=== PATIENT | male | born 1985 | race African-American/Black ===

== ENCOUNTER 2018-10-08 08:44 | Emergency (ER) | payer BC ==
--- NOTE | 2018-10-08 09:49 | EDM.PDOC ---
ED HPI GENERAL MEDICAL PROBLEM - General Chief Complaint: Neck Problem Stated Complaint: STIFF NECK Time Seen by Provider: 10/08/18 08:58 Source of Information: Reports: Patient History Limitations: Reports: No Limitations - History of Present Illness INITIAL COMMENTS - FREE TEXT/NARRATIVE: History of present illness: []Patient had 4 days of neck spasms and went to work 3 days ago that worsen the symptoms over the weekend. He now cannot move his neck without severe pain. He denies any trauma any numbness or tingling or any other injury or pain. Review of systems: As per history of present illness and below otherwise all systems reviewed and negative. Past medical history: As per history of present illness and as reviewed below otherwise noncontributory. Surgical history: As per history of present illness and as reviewed below otherwise noncontributory. Social history: No reported history of drug or alcohol abuse. Family history: As per history of present illness and as reviewed below otherwise noncontributory. Physical exam: General: Well developed, well nourished in NAD HEENT: Atraumatic, normocephalic, pupils reactive, negative for conjunctival pallor or scleral icterus, mucous membranes moist, throat clear, neck rigid , tender over right PACS, no vertebral tenderness to palpation, trachea midline. Lungs: Clear to auscultation, breath sounds equal bilaterally, chest nontender. Heart: S1S2, regular, negative for clicks, rubs, or JVD. Abdomen: NABS, Soft, nondistended, nontender. Negative for masses or hepatosplenomegaly. Negative for costovertebral tenderness. Pelvis: Stable nontender. Genitourinary: Deferred. Rectal: Deferred. Extremities: Atraumatic, negative for cords or calf pain. Neurovascular unremarkable. Neuro: Awake, alert, oriented. Cranial nerves II through XII unremarkable. Cerebellum unremarkable. Motor and sensory unremarkable throughout. Exam nonfocal. Skin:warm and dry Diagnostics: None Therapeutics: Norflex IM ED Course: Stable Impression: Neck muscle spasm Prescriptions: Norflex Plan: Take meds as directed, follow up with your primary care physician, return to ER if symptoms worsen or change. Definitive disposition and diagnosis as appropriate pending reevaluation and review of above. right middle neck Pain Score (Numeric/FACES): 10 - Related Data Allergies Allergy/AdvReac Type Severity Reaction Status Date / Time No Known Allergies Allergy Verified 10/08/18 09:01 Home Meds: Home Meds Orphenadrine [Norflex] 100 mg PO BID PRN #16 tab 10/08/18 [Rx] Past Medical History HEENT History: Reports: None Cardiovascular History: Reports: None Respiratory History: Reports: None Gastrointestinal History: Reports: None Genitourinary History: Reports: None Musculoskeletal History: Reports: None Neurological History: Reports: None Psychiatric History: Reports: None Endocrine/Metabolic History: Reports: None Hematologic History: Reports: None Immunologic History: Reports: None Oncologic (Cancer) History: Reports: None Dermatologic History: Reports: None - Infectious Disease History Infectious Disease History: Reports: Chicken Pox - Past Surgical History Head Surgeries/Procedures: Reports: None HEENT Surgical History: Reports: None Cardiovascular Surgical History: Reports: None Respiratory Surgical History: Reports: None GI Surgical History: Reports: None Male Surgical History: Reports: None Endocrine Surgical History: Reports: None Neurological Surgical History: Reports: None Musculoskeletal Surgical History: Reports: Arthroscopic Knee Oncologic Surgical History: Reports: None Dermatological Surgical History: Reports: None Social & Family History - Family History Family Medical History: Noncontributory - Tobacco Use Smoking Status *Q: Never Smoker Second Hand Smoke Exposure: No - Caffeine Use Caffeine Use: Reports: Coffee, Tea - Recreational Drug Use Recreational Drug Use: No ED ROS GENERAL - Review of Systems Review Of Systems: ROS reveals no pertinent complaints other than HPI. ED EXAM, UPPER BACK/NECK PAIN - Physical Exam Exam: See Below (See history of present illness) Course - Vital Signs Last Recorded V/S: Last Vital Signs Temp 97.2 F 10/08/18 08:59 Pulse 66 10/08/18 08:59 Resp 16 10/08/18 08:59 BP 168/86 H 10/08/18 08:59 Pulse Ox 99 10/08/18 08:59 - Orders/Labs/Meds Orders: Active Orders 24 hr Category Date Time Status Orphenadrine [Norflex] Med 10/08/18 09:15 Active 60 mg IM Q12H Medication Orders Orphenadrine Citrate (Norflex) 60 mg IM Q12H LEISA Last Admin: 10/08/18 09:19 Dose: 60 mg Meds: Medications Generic Name Dose Route Start Last Admin Trade Name Freq PRN Reason Stop Dose Admin Orphenadrine Citrate 60 mg 10/08/18 09:15 10/08/18 09:19 Norflex IM 60 mg Q12H LEISA Administration Departure - Departure Time of Disposition: 09:49 Disposition: Home, Self-Care 01 Condition: Good Clinical Impression: Neck muscle spasm - Discharge Information *PRESCRIPTION DRUG MONITORING PROGRAM REVIEWED*: No *COPY OF PRESCRIPTION DRUG MONITORING REPORT IN PATIENT LADY: No Prescriptions: Orphenadrine [Norflex] 100 mg PO BID PRN #16 tab PRN Reason: Pain Instructions: Muscle Cramps and Spasms, [id number] Referrals: PCP,None [Primary Care Provider] - Forms: ED Department Discharge Additional Instructions: The following information is given to patients seen in the emergency department who are being discharged to home. This information is to outline your options for follow-up care. We provide all patients seen in our emergency department with a follow-up referral. The need for follow-up, as well as the timing and circumstances, are variable depending upon the specifics of your emergency department visit. If you don't have a primary care physician on staff, we will provide you with a referral. We always advise you to contact your personal physician following an emergency department visit to inform them of the circumstance of the visit and for follow-up with them and/or the need for any referrals to a consulting specialist. The emergency department will also refer you to a specialist when appropriate. This referral assures that you have the opportunity for follow-up care with a specialist. All of these measure are taken in an effort to provide you with optimal care, which includes your follow-up. Under all circumstances we always encourage you to contact your private physician who remains a resource for coordinating your care. When calling for follow-up care, please make the office aware that this follow-up is from your recent emergency room visit. If for any reason you are refused follow-up, please contact the [facility] Emergency Department at and asked to speak to the emergency department charge nurse. Take meds as directed, follow up with your primary care physician, return to ER if symptoms worsen or change. [facility] [address] [place] [id number] - My Orders Last 24 Hours: My Active Orders 10/08/18 09:15 Orphenadrine [Norflex] 60 mg IM Q12H - Assessment/Plan Last 24 Hours: My Active Orders 10/08/18 09:15 Orphenadrine [Norflex] 60 mg IM Q12H
== END 2018-10-08 10:00 | disposition home or self-care (01) ==
LOC: MW.ED 08:44
DX: M62.838 Other muscle spasm (principal); Z79.899 Other long term (current) drug therapy
CPT/HCPCS: 96372; 99283; J2360

== ENCOUNTER 2018-10-09 20:53 | Emergency (ER) | payer BC ==
[2018-10-09] MEDS ORDERED: Ketorolac 60 MG/2 ML SDV IM ONE (21:36)
--- NOTE | 2018-10-09 21:45 | EDM.PDOC ---
<Geovanna Ambriz - Last Filed: 10/09/18 22:18> ED HPI GENERAL MEDICAL PROBLEM - General Chief Complaint: Neck Problem Stated Complaint: STIFF NECK Time Seen by Provider: 10/09/18 20:54 - Related Data Allergies Allergy/AdvReac Type Severity Reaction Status Date / Time No Known Allergies Allergy Verified 10/09/18 21:15 Home Meds: Home Meds Orphenadrine [Norflex] 100 mg PO BID PRN #16 tab 10/08/18 [Rx] ED ROS GENERAL - Review of Systems Review Of Systems: ROS reveals no pertinent complaints other than HPI. ED EXAM, UPPER BACK/NECK PAIN - Physical Exam Exam: See Below Course - Vital Signs Last Recorded V/S: Last Vital Signs Temp 36.2 C 10/09/18 22:35 Pulse 61 10/09/18 22:35 Resp 18 10/09/18 22:35 BP 137/89 10/09/18 22:35 Pulse Ox 98 10/09/18 22:35 - Orders/Labs/Meds Orders: Active Orders 24 hr Category Date Time Status Consult to Physical Therapy [PT Evaluation and Cons 10/09/18 21:41 Active Treatment] [CONS] Stat Meds: Medications Discontinued Medications Generic Name Dose Route Start Last Admin Trade Name Freq PRN Reason Stop Dose Admin Ketorolac Tromethamine 60 mg 10/09/18 21:36 10/09/18 21:42 Toradol IM 10/09/18 21:37 60 mg ONETIME ONE Administration Orphenadrine Citrate 60 mg 10/09/18 21:36 10/09/18 21:45 Norflex IM 10/09/18 21:37 60 mg NOW STA Administration Departure - Departure Time of Disposition: 22:18 Disposition: Home, Self-Care 01 Condition: Good Clinical Impression: Trapezius muscle spasm - Discharge Information Instructions: Muscle Cramps and Spasms, [id number] Referrals: PCP,None [Primary Care Provider] - Forms: ED Department Discharge Additional Instructions: The following information is given to patients seen in the emergency department who are being discharged to home. This information is to outline your options for follow-up care. We provide all patients seen in our emergency department with a follow-up referral. The need for follow-up, as well as the timing and circumstances, are variable depending upon the specifics of your emergency department visit. If you don't have a primary care physician on staff, we will provide you with a referral. We always advise you to contact your personal physician following an emergency department visit to inform them of the circumstance of the visit and for follow-up with them and/or the need for any referrals to a consulting specialist. The emergency department will also refer you to a specialist when appropriate. This referral assures that you have the opportunity for follow-up care with a specialist. All of these measure are taken in an effort to provide you with optimal care, which includes your follow-up. Under all circumstances we always encourage you to contact your private physician who remains a resource for coordinating your care. When calling for follow-up care, please make the office aware that this follow-up is from your recent emergency room visit. If for any reason you are refused follow-up, please contact the [facility] Emergency Department at and asked to speak to the emergency department charge nurse. [facility] [address] [place] [id number] [facility] [address] [place] [id number] 1. Continue to take Tylenol as directed for pain and discomfort. Take medication as prescribed. Do not take diclofenac with ibuprofen. 2. Apply heat pad 15 mins on / 15 mins off for the next 24-48 hours. You can consider dry needling, ([facility]) does dry needling for muscle spasms. Referral for our physical therapy department has also been placed and you may try to connect with them for dry needling for this spasm as well 3. Follow up with the primary care provider as discussed. Return to the ED as needed and as discussed. <Chelsea Weller - Last Filed: 10/10/18 22:15> ED HPI GENERAL MEDICAL PROBLEM - General Source of Information: Reports: Patient History Limitations: Reports: No Limitations - History of Present Illness INITIAL COMMENTS - FREE TEXT/NARRATIVE: HISTORY AND PHYSICAL: History of present illness: Patient is a 33-year-old male presents to the ED today with concern of a neck spasm that has been ongoing since yesterday. Patient was seen in the ED yesterday and was given in the muscle relaxer and was told to take ibuprofen and Tylenol. Patient states that he has been doing this but has not taken a dose of any of these medications since 10 this morning. Patient states when he turns his neck a certain way the right side of his neck "spasm" and he feels as if he cannot move his neck. Patient denies any injury or any other symptoms. Patient states he has not tried applying heat to his neck or any other means of treatment. Patient denies fever, chills, chest pain, shortness of breath, or cough. Denies headache, change in vision, syncope, or near syncope. Denies nausea, vomiting, abdominal pain, diarrhea, constipation, or dysuria. Has not noted any blood in urine or stool. Patient has been eating and drinking appropriately. Review of systems: As per history of present illness and below otherwise all systems reviewed and negative. Past medical history: As per history of present illness and as reviewed below otherwise noncontributory. Surgical history: As per history of present illness and as reviewed below otherwise noncontributory. Social history: See social history for further information Family history: As per history of present illness and as reviewed below otherwise noncontributory. Physical exam: General: Patient is alert, oriented, and in no acute distress. Patient sitting comfortably on exam table. HEENT: Atraumatic, normocephalic, pupils equal and reactive bilaterally, negative for conjunctival pallor or scleral icterus, mucous membranes moist, TMs normal bilaterally, throat clear, neck supple, nontender, trachea midline. No drooling or trismus noted. No meningeal signs. No hot potato voice noted. Lungs: Clear to auscultation, breath sounds equal bilaterally, chest nontender. Heart: S1S2, regular rate and rhythm without overt murmur Abdomen: Soft, nondistended, nontender. Negative for masses or hepatosplenomegaly. Negative for costovertebral tenderness. Pelvis: Stable nontender. Genitourinary: Deferred. Rectal: Deferred. Skin: Intact, warm, dry. No lesions or rashes noted. Extremities/musculoskeletal: Atraumatic, negative for cords or calf pain. Neurovascular unremarkable. Negative pain to palpation of the complete spine and spinous process. With range of motion of the cervical spine, patient expresses spasm along the trapezius muscle origin/insertion along the right side of the neck and along the muscle line to the right shoulder / mid scapula with pain on palpation of muscle body as well. No obvious deformities, step-offs , or crepitus of the complete spine. Neuro: Awake, alert, oriented. Cranial nerves II through XII unremarkable. Cerebellum unremarkable. Motor and sensory unremarkable throughout. Exam nonfocal. Notes: Discussed the importance for follow-up with primary care provider. Voices understanding and is agreeable to plan of care. Denies any further questions or concerns at this time. Diagnostics: Cervical XR Therapeutics: Norflex, Toradol Prescription: Diclofenac Impression: Trapezius neck spasm Plan: 1. Continue to take Tylenol as directed for pain and discomfort. Take medication as prescribed. Do not take diclofenac with ibuprofen. 2. Apply heat pad 15 mins on / 15 mins off for the next 24-48 hours. You can consider dry needling, ([facility]) does dry needling for muscle spasms. 3. Follow up with the primary care provider as discussed. Return to the ED as needed and as discussed. Definitive disposition and diagnosis as appropriate pending reevaluation and review of above. Neck Pain Score (Numeric/FACES): 10 Past Medical History HEENT History: Reports: None Cardiovascular History: Reports: Hypertension Respiratory History: Reports: None Gastrointestinal History: Reports: None Genitourinary History: Reports: None Musculoskeletal History: Reports: None Neurological History: Reports: None Psychiatric History: Reports: None Endocrine/Metabolic History: Reports: None Hematologic History: Reports: None Immunologic History: Reports: None Oncologic (Cancer) History: Reports: None Dermatologic History: Reports: None - Infectious Disease History Infectious Disease History: Reports: Chicken Pox - Past Surgical History Head Surgeries/Procedures: Reports: None HEENT Surgical History: Reports: None Cardiovascular Surgical History: Reports: None Respiratory Surgical History: Reports: None GI Surgical History: Reports: None Male Surgical History: Reports: None Endocrine Surgical History: Reports: None Neurological Surgical History: Reports: None Musculoskeletal Surgical History: Reports: Arthroscopic Knee Oncologic Surgical History: Reports: None Dermatological Surgical History: Reports: None Social & Family History - Family History Family Medical History: Noncontributory - Tobacco Use Smoking Status *Q: Never Smoker - Caffeine Use Caffeine Use: Reports: Coffee, Tea - Recreational Drug Use Recreational Drug Use: No ED ROS GENERAL - Review of Systems Review Of Systems: ROS reveals no pertinent complaints other than HPI. ED EXAM, UPPER BACK/NECK PAIN - Physical Exam Exam: See Below (see dictation)
--- NOTE | 2018-10-09 22:14 | CR ---
INDICATION: Pain after sleeping. No history of injury. COMPARISON: None available. FINDINGS: The cervical spine was examined with AP, lateral and open mouth views for a total of three views. The cervical vertebral bodies and disc spaces are normal in height. The vertebral bodies are in anatomic alignment with no sign of fracture or subluxation. The prevertebral soft tissues are normal in appearance with no sign of swelling. The airway structures are normal in appearance. IMPRESSION: Normal cervical spine three views. Dictated by Wellington Elliott MD @ Oct 09 2018 10:12PM Signed by Dr. Wellington Elliott @ Oct 09 2018 10:13PM
== END 2018-10-09 22:35 | disposition home or self-care (01) ==
LOC: MW.ED 20:53
DX: M62.838 Other muscle spasm (principal); I10 Essential (primary) hypertension
CPT/HCPCS: 72040; 96372; 99283; J1885; J2360

== ENCOUNTER 2020-06-26 01:21 | Emergency (ER) | payer BC ==
[2020-06-26] MEDS ORDERED: Sodium Chloride 0.9% 2.5 ML Syringe FLUSH PRN (01:35)
[2020-06-26] MEDS ORDERED: Aspirin 81 MG Tab.Chew PO ONE (01:35)
[2020-06-26] MEDS ORDERED: Sodium Chloride 0.9% 10 ML Syringe FLUSH PRN (01:35)
--- NOTE | 2020-06-26 01:39 | EDM.PDOC ---
ED HPI GENERAL MEDICAL PROBLEM - General Stated Complaint: CHEST PAIN Time Seen by Provider: 06/26/20 01:23 - History of Present Illness INITIAL COMMENTS - FREE TEXT/NARRATIVE: HISTORY AND PHYSICAL: History of present illness: This is a 34-year-old gentleman with a recent diagnosis of hypertension who was recently started on lisinopril approximately 2 days ago by his primary care physician who presents to the ER today complaining of midsternal chest pain that started ever since he started taking his lisinopril. Patient reported the pain in the left side of his chest and midsternal region. Patient reports that the pain increases with exertion. Patient reports no associated shortness of breath, diaphoresis, nausea, pain rating to his arms jaw or back. Patient reports no family history of prior CAD or DC. Patient denies any history of diabetes or high cholesterol. Patient reports that the pain increased tonight after eating has been having pain and discomfort in that region since. Patient reports that when he walks around the pain worsens and is improved with sitting down. Patient denies any recent fevers, shakes, chills, nausea, vomiting, diarrhea, dysuria, frequency, urgency, shortness of breath, abdominal pain, calf tenderness, hemoptysis. Review of systems: As per history of present illness and below otherwise all systems reviewed and negative. Past medical history: As per history of present illness and as reviewed below otherwise noncontributory. Surgical history: As per history of present illness and as reviewed below otherwise noncontributory. Social history: No reported history of drug or alcohol abuse. Family history: As per history of present illness and as reviewed below otherwise noncontributory. Physical exam: This patient was seen and evaluated during the 2019 SARS-CoV-2 novel coronavirus pandemic period. Community viral transmission is ongoing at time of this encounter and the emergency department is operating under pandemic response procedures. Constitutional: Patient is oriented to person, place, and time. Appears well- developed and well-nourished. No distress. HEENT: Moist mucous membranes Head: Normocephalic and atraumatic Eyes: Right eye exhibits no discharge. Left eye exhibits no discharge. No scleral icterus Neck: Normal range of motion. No tracheal deviation present. Cardiovascular: Normal rate and regular rhythm. Pulmonary: Effort normal, no respiratory distress. Abdominal: No distention Musculoskeletal: Normal range of motion Neurologic: Alert and oriented to person, place and time. Skin: [place], warm and dry. Psychiatric: Normal mood and affect. Behavior is normal. Judgment and thought content normal. Nursing note and vital signs have been reviewed Diagnostics: EKG: As interpreted by ER physician: Vicky: Nonspecific ST-T wave abnormalities Normal axis No evidence of ST elevation DC Normal sinus rhythm heart rate of 65 Chest Xray: Normal cardiac silhouette No infiltrates or effusions identified. No PTX No evidence of acute bony fracture. As interpreted by ER MD: Vicky EKG #2 EKG: As interpreted by ER physician: Vicky: Nonspecific ST-T wave abnormalities Normal axis No evidence of ST elevation DC Normal sinus rhythm heart rate of 54 no significant changes from prior EKG from earlier today. Therapeutics: Aspirin Assessment and plan: Is a 34-year-old gentleman with a history of recently diagnosed hypertension who presents ER today with exertional type chest pain that started earlier this evening. Patient reports that he started having pain in his chest ever since he started taking his lisinopril. Patient reports that this evening after eating dinner he started having discomfort in his chest that has been constant since. Patient denies any other significant cardiac risk factors. Patient will have labs including a CBC, CMP, D-dimer, troponin drawn and we will evaluate results. 4:06 AM: Patient has been seen and evaluated by me and reevaluated by me multiple times during his ER visit I have had long conversations with him and his regarding his symptoms and his blood pressure. Patient reports that he only has pain when he swallows his saliva or pills. Patient reports that when he is not swallowing he has no pain or discomfort. In the ED, he was given an aspirin and he reports that the pain in his chest occurred after swallowing the aspirin and then resolved after several seconds. It is unclear whether or not the symptoms that the patient is experiencing is related to esophageal spasms or if it is a side effect from the blood pressure medication that he has been started on. Patient was given a GI cocktail and reports after the GI cocktail his symptoms are resolved and he does not get the discomfort anymore when he swallows. Patient troponin in the ER is negative and his repeat was also negative at 2 hours. Patient's EKGs have been unremarkable. A repeat EKG was done which showed no dynamic changes. At this time, I feel that this patient is extremely low risk for cardiac etiology of his discomfort. I have had a long discussion with the patient and his and at this time we are in agreement that the patient is safe to be discharged home with close follow-up with his doctor on Monday or Monday for reevaluation. Patient was instructed to return to the ER if he develops any new or concerning symptoms or if he has recurrence of his discomfort. Reassessment at the time of disposition demonstrates that the patient is in no acute distress. The patient has remained stable throughout the entire ED visit and is without objective evidence for acute process requiring urgent intervention or hospitalization. The patient is stable for discharge, counseling is provided as documented above, discussed symptomatic treatment and specific conditions for return. I have spoken with the patient/caregiver and discussed todays findings, in addition to providing specific details for the plan of care. Questions are answered and there is agreement with the plan. Definitive disposition and diagnosis as appropriate pending reevaluation and review of above. chest Pain Score (Numeric/FACES): 10 - Related Data Allergies Allergy/AdvReac Type Severity Reaction Status Date / Time No Known Allergies Allergy Verified 06/26/20 01:37 Home Meds: Home Meds lisinopriL [Lisinopril] 10 mg PO DAILY 06/26/20 [History] Past Medical History HEENT History: Reports: None Cardiovascular History: Reports: Hypertension Respiratory History: Reports: None Gastrointestinal History: Reports: None Genitourinary History: Reports: None Musculoskeletal History: Reports: None Neurological History: Reports: None Psychiatric History: Reports: None Endocrine/Metabolic History: Reports: None Hematologic History: Reports: None Immunologic History: Reports: None Oncologic (Cancer) History: Reports: None Dermatologic History: Reports: None - Infectious Disease History Infectious Disease History: Reports: Chicken Pox - Past Surgical History Head Surgeries/Procedures: Reports: None HEENT Surgical History: Reports: None Cardiovascular Surgical History: Reports: None Respiratory Surgical History: Reports: None GI Surgical History: Reports: None Male Surgical History: Reports: None Endocrine Surgical History: Reports: None Neurological Surgical History: Reports: None Musculoskeletal Surgical History: Reports: Arthroscopic Knee Oncologic Surgical History: Reports: None Dermatological Surgical History: Reports: None Social & Family History - Family History Family Medical History: No Pertinent Family History - Caffeine Use Caffeine Use: Reports: Coffee, Tea ED ROS GENERAL - Review of Systems Review Of Systems: See Below ED EXAM, GENERAL - Physical Exam Exam: See Below Course - Vital Signs Last Recorded V/S: Last Vital Signs Temp 98 F 06/26/20 01:30 Pulse 57 L 06/26/20 03:42 Resp 19 06/26/20 03:42 BP 115/73 06/26/20 03:42 Pulse Ox 98 06/26/20 03:42 - Orders/Labs/Meds Orders: Active Orders 24 hr Category Date Time Status EKG Documentation Completion [RC] AM Care 06/26/20 01:35 Active Chest 1V Frontal [CR] Stat Exams 06/26/20 01:35 Taken Sodium Chloride 0.9% [Saline Flush] Med 06/26/20 01:35 Active 10 ml FLUSH ASDIRECTED PRN Sodium Chloride 0.9% [Saline Flush] Med 06/26/20 01:35 Active 2.5 ml FLUSH ASDIRECTED PRN Saline Lock Insert [OM.PC] Stat Oth 06/26/20 01:35 Ordered Medication Orders Sodium Chloride (Saline Flush) 10 ml FLUSH ASDIRECTED PRN PRN Reason: Keep Vein Open Last Admin: 06/26/20 01:43 Dose: 10 ml Documented by: MARIA FERNANDA Sodium Chloride (Saline Flush) 2.5 ml FLUSH ASDIRECTED PRN PRN Reason: Keep Vein Open Last Admin: 06/26/20 01:42 Dose: 2.5 ml Documented by: MARIA FERNANDA Labs: Laboratory Tests 06/26/20 06/26/20 06/26/20 Range/Units 01:26 01:26 01:26 WBC 4.74 (4.0-11.0) K/uL RBC 5.08 (4.50-5.90) M/uL Hgb 15.0 (13.0-17.0) g/dL Hct 43.1 (38.0-50.0) % MCV 84.8 (80.0-98.0) fL MCH 29.5 (27.0-32.0) pg MCHC 34.8 (31.0-37.0) g/dL RDW Std Deviation 39.4 (28.0-62.0) fl RDW Coeff of Rory 13 (11.0-15.0) % Plt Count 211 (150-400) K/uL MPV 9.90 (7.40-12.00) fL Neut % (Auto) 50.2 (48.0-80.0) % Lymph % (Auto) 38.0 (16.0-40.0) % [place] % (Auto) 9.5 (0.0-15.0) % Eos % (Auto) 1.7 (0.0-7.0) % Baso % (Auto) 0.6 (0.0-1.5) % Neut # (Auto) 2.4 (1.4-5.7) K/uL Lymph # (Auto) 1.8 (0.6-2.4) K/uL [place] # (Auto) 0.5 (0.0-0.8) K/uL Eos # (Auto) 0.1 (0.0-0.7) K/uL Baso # (Auto) 0.0 (0.0-0.1) K/uL D-Dimer, Quantitative 0.23 (0.0-0.50) mg/L FEU Sodium 140 (136-148) mmol/L Potassium 3.6 (3.5-5.1) mmol/L Chloride 103 (98-107) mmol/L Carbon Dioxide 31.7 (21.0-32.0) mmol/L BUN 11 (7.0-18.0) mg/dL Creatinine 1.3 (0.8-1.3) mg/dL Est Cr Clr Drug Dosing 85.28 mL/min Estimated GFR (MDRD) > 60.0 ml/min Glucose 110 H (74-106) mg/dL Calcium 8.7 (8.5-10.1) mg/dL Total Bilirubin 1.2 H (0.2-1.0) mg/dL AST 18 (15-37) IU/L ALT 35 (14-63) IU/L Alkaline Phosphatase 38 L (46-116) U/L Troponin I < 0.050 (0.000-0.056) ng/mL Total Protein 7.6 (6.4-8.2) g/dL Albumin 4.0 (3.4-5.0) g/dL Globulin 3.6 (2.6-4.0) g/dL Albumin/Globulin Ratio 1.1 (0.9-1.6) 06/26/20 Range/Units 03:16 WBC (4.0-11.0) K/uL RBC (4.50-5.90) M/uL Hgb (13.0-17.0) g/dL Hct (38.0-50.0) % MCV (80.0-98.0) fL MCH (27.0-32.0) pg MCHC (31.0-37.0) g/dL RDW Std Deviation (28.0-62.0) fl RDW Coeff of Rory (11.0-15.0) % Plt Count (150-400) K/uL MPV (7.40-12.00) fL Neut % (Auto) (48.0-80.0) % Lymph % (Auto) (16.0-40.0) % [place] % (Auto) (0.0-15.0) % Eos % (Auto) (0.0-7.0) % Baso % (Auto) (0.0-1.5) % Neut # (Auto) (1.4-5.7) K/uL Lymph # (Auto) (0.6-2.4) K/uL [place] # (Auto) (0.0-0.8) K/uL Eos # (Auto) (0.0-0.7) K/uL Baso # (Auto) (0.0-0.1) K/uL D-Dimer, Quantitative (0.0-0.50) mg/L FEU Sodium (136-148) mmol/L Potassium (3.5-5.1) mmol/L Chloride (98-107) mmol/L Carbon Dioxide (21.0-32.0) mmol/L BUN (7.0-18.0) mg/dL Creatinine (0.8-1.3) mg/dL Est Cr Clr Drug Dosing mL/min Estimated GFR (MDRD) ml/min Glucose (74-106) mg/dL Calcium (8.5-10.1) mg/dL Total Bilirubin (0.2-1.0) mg/dL AST (15-37) IU/L ALT (14-63) IU/L Alkaline Phosphatase (46-116) U/L Troponin I < 0.050 (0.000-0.056) ng/mL Total Protein (6.4-8.2) g/dL Albumin (3.4-5.0) g/dL Globulin (2.6-4.0) g/dL Albumin/Globulin Ratio (0.9-1.6) Meds: Medications Generic Name Dose Route Start Last Admin Trade Name Freq PRN Reason Stop Dose Admin Sodium Chloride 10 ml 06/26/20 01:35 06/26/20 01:43 Saline Flush FLUSH 10 ml ASDIRECTED PRN Administration Keep Vein Open Sodium Chloride 2.5 ml 06/26/20 01:35 06/26/20 01:42 Saline Flush FLUSH 2.5 ml ASDIRECTED PRN Administration Keep Vein Open Discontinued Medications Generic Name Dose Route Start Last Admin Trade Name Freq PRN Reason Stop Dose Admin Aspirin 324 mg 06/26/20 01:35 06/26/20 01:42 Aspirin PO 06/26/20 01:36 324 mg ONETIME ONE Administration Al Hydroxide/Mg Hydroxide 15 0 ml 06/26/20 02:36 06/26/20 02:42 ml/ Lidocaine HCl 5 ml PO 06/26/20 02:37 1 each ONETIME ONE Administration Departure - Departure Time of Disposition: 04:08 Disposition: Home, Self-Care 01 Condition: Good Clinical Impression: Acute nonspecific chest pain with low risk of coronary artery disease, Esophageal spasm - Discharge Information Instructions: Esophageal Spasm, Nonspecific Chest Pain, Adult Referrals: Alfredo Cuevas MD [Primary Care Provider] - Additional Instructions: Your seen and evaluated in the ER today secondary to chest discomfort that occurred over the last couple days. It is unclear whether or not this is related to the medication that you have been taking or if this is symptoms of esophageal spasms. Your EKG and your heart enzymes have all been normal in the emergency department. Although this is a good indication that this is not your heart, this is not completely ruled out. As we have discussed, please make an appointment to see your family doctor in the morning or early next week so they can reevaluate you and assess you for the possibility of an outpatient exercise stress test. Your symptoms appear to be most likely secondary to esophageal spasms given that there was some improvement with the GI cocktail. The fact that your symptoms return when you swallow your saliva or pills also makes it appear to be more likely related to esophageal spasm than a cardiac origin. The following information is given to patients seen in the emergency department who are being discharged to home. This information is to outline your options for follow-up care. We provide all patients seen in our emergency department with a follow-up referral. The need for follow-up, as well as the timing and circumstances, are variable depending upon the specifics of your emergency department visit. If you don't have a primary care physician on staff, we will provide you with a referral. We always advise you to contact your personal physician following an emergency department visit to inform them of the circumstance of the visit and for follow-up with them and/or the need for any referrals to a consulting specialist. The emergency department will also refer you to a specialist when appropriate. This referral assures that you have the opportunity for follow-up care with a specialist. All of these measure are taken in an effort to provide you with optimal care, which includes your follow-up. Under all circumstances we always encourage you to contact your private physician who remains a resource for coordinating your care. When calling for follow-up care, please make the office aware that this follow-up is from your recent emergency room visit. If for any reason you are refused follow-up, please contact the [facility] Emergency Department at and asked to speak to the emergency department charge nurse. [facility] [address] [place] [address] [address] Sepsis Event Note (ED) - Focused Exam Vital Signs: Vital Signs Temp Pulse Resp BP Pulse Ox 06/26/20 03:42 57 L 19 115/73 98 06/26/20 01:30 98 F 62 20 162/80 H 99 - My Orders Last 24 Hours: My Active Orders 06/26/20 01:35 EKG Documentation Completion [RC] AM Chest 1V Frontal [CR] Stat Sodium Chloride 0.9% [Saline Flush] 10 ml FLUSH ASDIRECTED PRN Sodium Chloride 0.9% [Saline Flush] 2.5 ml FLUSH ASDIRECTED PRN Saline Lock Insert [OM.PC] Stat - Assessment/Plan Last 24 Hours: My Active Orders 06/26/20 01:35 EKG Documentation Completion [RC] AM Chest 1V Frontal [CR] Stat Sodium Chloride 0.9% [Saline Flush] 10 ml FLUSH ASDIRECTED PRN Sodium Chloride 0.9% [Saline Flush] 2.5 ml FLUSH ASDIRECTED PRN Saline Lock Insert [OM.PC] Stat
[2020-06-26 02:00] LABS: BLOOD UREA NITROGEN,BUN 11 mg/dL (7.0-18.0); CARBON DIOXIDE,CO2 31.7 mmol/L (21.0-32.0); CHLORIDE,CL 103 mmol/L (98-107); GLUCOSE RANDOM 110 mg/dL (74-106); POTASSIUM,K 3.6 mmol/L (3.5-5.1); SODIUM,NA 140 mmol/L (136-148)
[2020-06-26] MEDS ORDERED: Alum Hydrox/Mag Hydrox/Simeth 15 ML, Lidocaine 2% 5 ML PO ONE ×2 (02:36)
--- NOTE | 2020-06-29 10:07 | CR ---
EXAM DATE: 06/26/20 PATIENT'S AGE: 34 Patient: BETH XIONG Facility: [facility] . Site : 1985 Study: XRay-Chest -06/26/2020 1:58:17 AM Ordering Physician: REGULO MORELAND MD Final Report: INDICATION: Chest pain TECHNIQUE: Chest radiograph 1 view COMPARISON: None FINDINGS: Mediastinum: The mediastinum is normal in appearance. The cardiac silhouette is mildly enlarged this may be accentuated by the portable technique. Lung: Both lungs are unremarkable in appearance. No sign of pleural effusion seen. No pneumothorax is identified. Bone and Soft tissue: Unremarkable for age. IMPRESSION: 1. The cardiac silhouette is mildly enlarged this may be accentuated by the portable technique. Dictated by Dieudonne Zhu MD @ 06/26/2020 2:01:15 AM Dictated by: Dieudonne Zhu MD @ 06/26/2020 02:01:20 Signed by: Dieudonne Zhu MD @06/26/2020 2:01:20 AM (Electronic Signature) Report Signed by Proxy. SANTY
== END 2020-06-26 04:25 | disposition home or self-care (01) ==
LOC: MW.ED 01:21
DX: R07.9 Chest pain, unspecified (principal); K22.4 Dyskinesia of esophagus; I10 Essential (primary) hypertension; Z79.899 Other long term (current) drug therapy
CPT/HCPCS: 36415; 71045; 80053; 84484; 85025; 85379; 93005; 99285; A9270; 93010; 99283